=== PATIENT | male | born 1995 | race African-American/Black ===

== ENCOUNTER 2018-01-25 16:27 | Emergency (ER) | payer MEDICAID ==
[~2018-01-25] VITALS: Ht 167.6 cm; Wt 63.0 kg
[2018-01-25 16:33] VITALS: BP 143/88; Ht 167.6 cm; Wt 63.0 kg
== END 2018-01-25 16:50 | disposition home or self-care (01) ==
LOC: ED 16:27
DX: J40 Bronchitis, not specified as acute or chronic (principal)